=== PATIENT | male | born 1975 | race Two or more races ===

== ENCOUNTER 2020-08-16 06:38 | Inpatient (IN) | payer MEDICAID ==
[~2020-08-16] VITALS: Ht 157.5 cm; Wt 88.1 kg
[2020-08-16] MEDS ORDERED: NOREPINEPHRINE 8 MG/250ML KIT 250 ML IV ONE (07:29)
[2020-08-16] MEDS ORDERED: ETOMIDATE (2MG/ML) 20ML VIAL IV ONE ×2 (07:30→07:34)
[2020-08-16] MEDS ORDERED: SODIUM CHLORIDE 0.9% 2,600 ML IV ONE (07:30)
[2020-08-16] MEDS ORDERED: ACETAMINOPHEN 325 MG TAB PO PRN (07:30)
[2020-08-16] MEDS ORDERED: SUCCINYLCHOLINE CHLORIDE 20 MG/ML 10ML VIAL IV ONE ×2 (07:30→07:35)
[2020-08-16] MEDS ORDERED: MIDAZOLAM DRIP 50 mg/50mL 50 ML IV ONE (07:30)
[2020-08-16 07:53] LABS: Basophils # (auto) 0.2 10 ^3/uL (0-0.2); Basophils % (auto) 0.8 % (0.0-2.0); Eosinophils # (auto) 0 10 ^3/uL (0-0.8); Eosinophils % (auto) 0.2 % (0.0-7.0); Hematocrit 45.9 % (41.0-53.0); Hemoglobin 14.7 g/dL (13.5-17.5); Lymphocytes # (auto) 5.1 10 ^3/uL (0.4-5.4); Lymphocytes % (auto) 25.2 % (10.0-50.0); Mean Corpuscular Hemoglobin 30.1 pg (28.0-32.0); Mean Corpuscular Hgb Conc. 31.9 g/dL (32.0-36.0); Mean Corpuscular Volume 94.1 fL (80.0-100.0); Monocytes # (auto) 0.8 10 ^3/uL (0-1.3); Monocytes % (auto) 3.9 % (0.0-12.0); Neutrophils # (auto) 14.3 10 ^3/uL (1.6-8.6); Neutrophils % (auto) 69.9 % (37.0-80.0); Nucleated Red Blood Cells % 0.1 %; Platelet Count (auto) 278 10^3/uL (140-450); Red Blood Cells 4.88 10^6/uL (4.5-5.90); White Blood Cell 20.4 10^3/uL (4.4-10.8)
[2020-08-16] MEDS ORDERED: PROPOFOL 100 ML IV ONE (07:54)
[2020-08-16] MEDS: PROPOFOL 100 ML IV SCH (08:00)
[2020-08-16 08:02] LABS: INR 1.26 (0.9-1.15); Partial Thromboplastin Time 23.2 sec (23.0-31.2)
[2020-08-16] MEDS: MIDAZOLAM DRIP 50 mg/50mL 50 ML IV SCH ×6 (08:08→23:28)
[2020-08-16] MEDS: NOREPINEPHRINE 8 MG/250ML KIT 250 ML IV SCH (08:08)
[2020-08-16 08:13] LABS: Albumin 2.3 g/dL (3.4-5.0); BUN/Creatinine Ratio 15.5; Calcium 7.3 mg/dL (8.5-10.1)
[2020-08-16 08:15] LABS: Lactic Acid w/Reflex 7.7 mmol/L (0.4-2.0)
[2020-08-16] MEDS: fentaNYL Drip 2500mCg/250mlNS 250 ML IV SCH (08:50)
[2020-08-16] MEDS ORDERED: fentaNYL Drip 2500mCg/250mlNS 250 ML IV ONE (08:53)
[2020-08-16] MEDS ORDERED: SODIUM BICARBONATE 8.4 % INJ 50ML VIAL IV ONE (09:00)
[2020-08-16] MEDS ORDERED: IOHEXOL 350 MG/ML 100ML IJ ONE (09:29)
[2020-08-16] MEDS ORDERED: NITROGLYCERIN 0.4 MG SL TAB SL PRN (09:30)
[2020-08-16] MEDS ORDERED: MORPHINE SULF INJ 2 MG/ML SYRINGE 1ML IV PRN (09:30)
[2020-08-16] MEDS ORDERED: REMDESIVIR PER PHARMACY 0 ML IV SCH (09:30)
[2020-08-16] MEDS ORDERED: ONDANSETRON HCL 4 MG/2 ML VIAL IV PRN (09:30)
[2020-08-16] MEDS ORDERED: DEXTROSE (50%) 50ML SYRG IV PRN (09:30)
[2020-08-16 09:58] LABS: CRP High Sensitivity 1.45 mg/dL (< 0.3)
[2020-08-16] MEDS ORDERED: FAMOTIDINE 20 MG TAB PO SCH (10:00)
[2020-08-16] MEDS ORDERED: ENOXAPARIN SOD 100 MG/1 ML SYRINGE SC SCH (10:00)
[2020-08-16] MEDS: ASPirin-EC 81 mg tab PO SCH (11:02)
[2020-08-16] MEDS: ZINC SULFATE 220mg CAP or TAB PO SCH (11:02)
[2020-08-16] MEDS: CHOLECALCIFEROL (VITD3) 2,000 UNIT CAP/TAB PO SCH (11:03)
[2020-08-16] MEDS: ASCORBIC ACID 1,000 MG TAB PO SCH (11:03)
[2020-08-16] MEDS: DexAMETHasone SOD PHOS 10MG/1ML VIAL INJ IV SCH (11:04)
[2020-08-16 11:38] VITALS: BP 130/64
[2020-08-16] MEDS ORDERED: DexAMETHasone INJECTION 10 MG in SODIUM CHL 3% 500 ML IV SCH (12:00)
[2020-08-16] MEDS: ACCU-CHEK COMFORT CURVE STRIP VI SCH ×2 (12:22→18:00)
[2020-08-16] MEDS: InsuLIN REG 1unit/0.01ml Soln (100units/ml) SC SCH ×2 (12:23→19:30)
[2020-08-16] MEDS: PIPERACILLIN-TAZOB 3.375GM 100 ML IV SCH ×3 (12:33→23:07)
[2020-08-16 12:56] VITALS: BP 130/64
[2020-08-16 13:28] LABS: Lactic Acid w/Reflex 2.1 mmol/L (0.4-2.0)
[2020-08-16] MEDS: ACETAMINOPHEN 500 MG TAB PO PRN (13:58)
[2020-08-16 14:36] LABS: Urine Bacteria FEW /hpf (None Seen); Urine Blood Negative /uL (Negative); Urine Mucus FEW (None Seen); Urine WBC 1 /hpf (0 - 3)
[2020-08-16] MEDS ORDERED: ALTEPLASE (RECOMBINANT) 100 MG in STERILE WATER 100 ML IV ONE (15:00)
[2020-08-16 15:06] VITALS: BP 129/85
[2020-08-16 15:21] VITALS: BP 127/73
[2020-08-16] MEDS: SODIUM CHLORIDE 0.9% 1,000 ML IV SCH (16:13)
[2020-08-16] MEDS ORDERED: ROCURONIUM 10MG/ML 10ML VIAL IV ONE (16:15)
[2020-08-16] MEDS ORDERED: ALTEPLASE (RECOMBINANT) 100 MG ONE (16:29)
[2020-08-16 18:31] LABS: Basophils # (auto) 0.2 10 ^3/uL (0-0.2); Basophils % (auto) 1.3 % (0.0-2.0); Eosinophils # (auto) 0 10 ^3/uL (0-0.8); Hematocrit 42.1 % (41.0-53.0); Hemoglobin 14.3 g/dL (13.5-17.5); Lymphocytes % (auto) 6.1 % (10.0-50.0); Mean Corpuscular Hemoglobin 31.4 pg (28.0-32.0); Mean Corpuscular Volume 92.6 fL (80.0-100.0); Monocytes # (auto) 0.9 10 ^3/uL (0-1.3); Monocytes % (auto) 5.5 % (0.0-12.0); Neutrophils # (auto) 14.2 10 ^3/uL (1.6-8.6); Neutrophils % (auto) 87.1 % (37.0-80.0); Nucleated Red Blood Cells % 0.2 %; Platelet Count (auto) 222 10^3/uL (140-450); Red Blood Cells 4.55 10^6/uL (4.5-5.90); Red Cell Distribution Width 13.1 % (11.8-14.3); White Blood Cell 16.3 10^3/uL (4.4-10.8)
[2020-08-16 18:50] VITALS: BP 100/71
[2020-08-16] MEDS: SODIUM CHLOR 0.9% PF (SALINE LOCK) 10ML VIAL/SYR IV SCH (20:28)
[2020-08-16] MEDS ORDERED: REMDESIVIR 200 MG in NS 210ml LOADING DOSE ADULT IV ONE (20:30)
[2020-08-16 22:01] LABS: Basophils # (auto) 0 10 ^3/uL (0-0.2); Basophils % (auto) 0.3 % (0.0-2.0); Eosinophils # (auto) 0 10 ^3/uL (0-0.8); Hematocrit 41.2 % (41.0-53.0); Hemoglobin 13.7 g/dL (13.5-17.5); Lymphocytes # (auto) 1.5 10 ^3/uL (0.4-5.4); Lymphocytes % (auto) 10.9 % (10.0-50.0); Mean Corpuscular Hemoglobin 30.5 pg (28.0-32.0); Mean Corpuscular Hgb Conc. 33.2 g/dL (32.0-36.0); Mean Corpuscular Volume 91.9 fL (80.0-100.0); Monocytes # (auto) 1.1 10 ^3/uL (0-1.3); Monocytes % (auto) 7.8 % (0.0-12.0); Neutrophils # (auto) 11.1 10 ^3/uL (1.6-8.6); Platelet Count (auto) 199 10^3/uL (140-450); Red Blood Cells 4.48 10^6/uL (4.5-5.90); Red Cell Distribution Width 13.3 % (11.8-14.3); White Blood Cell 13.6 10^3/uL (4.4-10.8)
[2020-08-16 22:50] VITALS: BP_SYST 100; BP_SYST 98; BP_DIAS 70; BP_DIAS 71
[2020-08-17] MEDS: ACCU-CHEK COMFORT CURVE STRIP VI SCH ×4 (00:01→18:53)
[2020-08-17] MEDS: SODIUM CHLORIDE 0.9% 1,000 ML IV SCH ×3 (00:01→21:15)
[2020-08-17 02:35] VITALS: BP 105/73
[2020-08-17] MEDS: MIDAZOLAM DRIP 50 mg/50mL 50 ML IV SCH ×6 (04:10→21:00)
[2020-08-17] MEDS: InsuLIN REG 1unit/0.01ml Soln (100units/ml) SC SCH ×4 (05:01→18:53)
[2020-08-17] MEDS: PIPERACILLIN-TAZOB 3.375GM 100 ML IV SCH ×3 (05:01→18:23)
[2020-08-17] MEDS: NOREPINEPHRINE 8 MG/250ML KIT 250 ML IV SCH (05:04)
[2020-08-17 05:45] LABS: Basophils # (auto) 0.1 10 ^3/uL (0-0.2); Basophils % (auto) 0.6 % (0.0-2.0); Eosinophils # (auto) 0 10 ^3/uL (0-0.8); Hemoglobin 13.4 g/dL (13.5-17.5); Lymphocytes # (auto) 1.6 10 ^3/uL (0.4-5.4); Lymphocytes % (auto) 12.7 % (10.0-50.0); Mean Corpuscular Hemoglobin 30.9 pg (28.0-32.0); Mean Corpuscular Hgb Conc. 33.4 g/dL (32.0-36.0); Mean Corpuscular Volume 92.4 fL (80.0-100.0); Monocytes # (auto) 1.2 10 ^3/uL (0-1.3); Monocytes % (auto) 9.5 % (0.0-12.0); Neutrophils # (auto) 9.8 10 ^3/uL (1.6-8.6); Neutrophils % (auto) 77.2 % (37.0-80.0); Nucleated Red Blood Cells % 0.1 %; Platelet Count (auto) 177 10^3/uL (140-450); Red Blood Cells 4.33 10^6/uL (4.5-5.90); Red Cell Distribution Width 13.4 % (11.8-14.3); White Blood Cell 12.7 10^3/uL (4.4-10.8)
[2020-08-17 06:03] LABS: INR 1.43 (0.9-1.15); Partial Thromboplastin Time 27.9 sec (23.0-31.2)
[2020-08-17 06:11] LABS: Calcium 7.9 mg/dL (8.5-10.1); Potassium 4.3 mmol/L (3.5-5.1)
[2020-08-17 06:14] VITALS: BP 103/60
[2020-08-17 06:17] LABS: Albumin 2.4 g/dL (3.4-5.0); BUN/Creatinine Ratio 26.3; Bilirubin, Total 0.4 mg/dL (0.2-1.0); Total Protein 6.5 g/dL (6.4-8.2)
[2020-08-17] MEDS ORDERED: IVERMECTIN 3 MG TAB PO ONE (07:00)
[2020-08-17] MEDS: PROPOFOL 100 ML IV SCH (08:29)
[2020-08-17] MEDS ORDERED: cefTRIAXone 1GM/50ML D5W 50 ML IV SCH (09:00)
[2020-08-17 09:51] VITALS: BP 113/62
[2020-08-17] MEDS ORDERED: ENOXAPARIN SOD 100 MG/1 ML SYRINGE SC SCH (10:00)
[2020-08-17] MEDS: fentaNYL Drip 2500mCg/250mlNS 250 ML IV SCH (10:02)
[2020-08-17] MEDS: DexAMETHasone SOD PHOS 10MG/1ML VIAL INJ IV SCH (10:28)
[2020-08-17] MEDS: PANTOPRAZOLE 40 MG/10 ML VIAL INJ IV SCH (10:28)
[2020-08-17] MEDS: ASPirin-EC 81 mg tab PO SCH (10:29)
[2020-08-17] MEDS: ASCORBIC ACID 1,000 MG TAB PO SCH (10:29)
[2020-08-17] MEDS: ZINC SULFATE 220mg CAP or TAB PO SCH (10:29)
[2020-08-17] MEDS: SODIUM CHLOR 0.9% PF (SALINE LOCK) 10ML VIAL/SYR IV SCH ×2 (10:29→21:52)
[2020-08-17] MEDS: CHOLECALCIFEROL (VITD3) 2,000 UNIT CAP/TAB PO SCH (10:29)
[2020-08-17] MEDS ORDERED: HEPARIN SODIUM (PORCINE) 5000 UNITS/ML 1ML VIAL IV ONE ×2 (11:00→23:30)
[2020-08-17] MEDS ORDERED: LINEZOLID 600MG/300ML 300 ML IV ONE (11:00)
[2020-08-17 11:51] LABS: Basophils # (auto) 0 10 ^3/uL (0-0.2); Basophils % (auto) 0.1 % (0.0-2.0); Eosinophils # (auto) 0.1 10 ^3/uL (0-0.8); Eosinophils % (auto) 0.7 % (0.0-7.0); Hemoglobin 12.2 g/dL (13.5-17.5); Lymphocytes # (auto) 1.3 10 ^3/uL (0.4-5.4); Lymphocytes % (auto) 10.8 % (10.0-50.0); Mean Corpuscular Hemoglobin 32.5 pg (28.0-32.0); Mean Corpuscular Volume 92.9 fL (80.0-100.0); Monocytes % (auto) 8.5 % (0.0-12.0); Neutrophils # (auto) 9.3 10 ^3/uL (1.6-8.6); Neutrophils % (auto) 79.9 % (37.0-80.0); Platelet Count (auto) 185 10^3/uL (140-450); Red Blood Cells 3.76 10^6/uL (4.5-5.90); Red Cell Distribution Width 13.5 % (11.8-14.3); White Blood Cell 11.7 10^3/uL (4.4-10.8)
[2020-08-17 12:22] LABS: INR 1.29 (0.9-1.15)
[2020-08-17 12:25] LABS: Partial Thromboplastin Time < 20.0 sec (23.0-31.2)
[2020-08-17 13:34] VITALS: BP 100/67
[2020-08-17] MEDS: HEPARIN DRIP/D5W 100UNITS/ML 250 ML IV SCH ×2 (14:18→23:25)
[2020-08-17] MEDS ORDERED: REMDESIVIR 100mg 100 MG in SODIUM CHL 0.9% 230 ML IV SCH (15:00)
[2020-08-17 18:55] VITALS: BP 109/58
[2020-08-17] MEDS: LINEZOLID 600MG/300ML 300 ML IV SCH (21:51)
[2020-08-17 22:20] LABS: INR 1.24 (0.9-1.15)
[2020-08-17 22:21] LABS: Partial Thromboplastin Time < 20.0 sec (23.0-31.2)
[2020-08-17 22:33] VITALS: BP 118/53
[2020-08-17] MEDS ORDERED: HEPARIN SODIUM (PORCINE) 5000 UNITS/ML 1ML VIAL ONE (23:18)
[2020-08-18] MEDS: PIPERACILLIN-TAZOB 3.375GM 100 ML IV SCH ×5 (00:16→23:07)
[2020-08-18] MEDS: InsuLIN REG 1unit/0.01ml Soln (100units/ml) SC SCH ×5 (00:17→23:46)
[2020-08-18] MEDS: ACCU-CHEK COMFORT CURVE STRIP VI SCH ×5 (00:17→23:46)
[2020-08-18 01:40] VITALS: BP 123/52
[2020-08-18] MEDS: MIDAZOLAM DRIP 50 mg/50mL 50 ML IV SCH ×8 (02:00→23:07)
[2020-08-18] MEDS: PROPOFOL 100 ML IV SCH (02:00)
[2020-08-18 06:00] VITALS: BP 123/51
[2020-08-18 06:19] LABS: Basophils # (auto) 0.2 10 ^3/uL (0-0.2); Basophils % (auto) 1.7 % (0.0-2.0); Eosinophils # (auto) 0 10 ^3/uL (0-0.8); Hematocrit 33.4 % (41.0-53.0); Hemoglobin 11.8 g/dL (13.5-17.5); Lymphocytes # (auto) 0.8 10 ^3/uL (0.4-5.4); Mean Corpuscular Hemoglobin 32.3 pg (28.0-32.0); Mean Corpuscular Hgb Conc. 35.3 g/dL (32.0-36.0); Mean Corpuscular Volume 91.5 fL (80.0-100.0); Monocytes # (auto) 0.9 10 ^3/uL (0-1.3); Monocytes % (auto) 8.7 % (0.0-12.0); Neutrophils # (auto) 8.6 10 ^3/uL (1.6-8.6); Neutrophils % (auto) 81.6 % (37.0-80.0); Platelet Count (auto) 167 10^3/uL (140-450); Red Blood Cells 3.65 10^6/uL (4.5-5.90); Red Cell Distribution Width 13.3 % (11.8-14.3); White Blood Cell 10.5 10^3/uL (4.4-10.8)
[2020-08-18 06:28] LABS: Albumin 1.9 g/dL (3.4-5.0); BUN/Creatinine Ratio 14.5; Calcium 7.7 mg/dL (8.5-10.1)
[2020-08-18 06:31] LABS: Bilirubin, Total 0.6 mg/dL (0.2-1.0); Total Protein 5.7 g/dL (6.4-8.2)
[2020-08-18] MEDS: NOREPINEPHRINE 8 MG/250ML KIT 250 ML IV SCH (07:36)
[2020-08-18 08:43] LABS: INR 1.22 (0.9-1.15)
[2020-08-18 08:45] LABS: Partial Thromboplastin Time < 20.0 sec (23.0-31.2)
[2020-08-18] MEDS ORDERED: HEPARIN SODIUM (PORCINE) 5000 UNITS/ML 1ML VIAL ONE (08:52)
[2020-08-18] MEDS ORDERED: HEPARIN SODIUM (PORCINE) 5000 UNITS/ML 1ML VIAL IV ONE ×2 (09:15→17:45)
[2020-08-18] MEDS: SODIUM CHLORIDE 0.9% 1,000 ML IV SCH ×2 (10:02→17:24)
[2020-08-18] MEDS: DexAMETHasone SOD PHOS 10MG/1ML VIAL INJ IV SCH (10:03)
[2020-08-18] MEDS: LINEZOLID 600MG/300ML 300 ML IV SCH ×2 (10:03→22:28)
[2020-08-18] MEDS: SODIUM CHLOR 0.9% PF (SALINE LOCK) 10ML VIAL/SYR IV SCH ×2 (10:03→20:57)
[2020-08-18] MEDS: PANTOPRAZOLE 40 MG/10 ML VIAL INJ IV SCH (10:03)
[2020-08-18] MEDS: fentaNYL Drip 2500mCg/250mlNS 250 ML IV SCH (10:03)
[2020-08-18] MEDS: ASPirin-EC 81 mg tab PO SCH (10:04)
[2020-08-18] MEDS: CHOLECALCIFEROL (VITD3) 2,000 UNIT CAP/TAB PO SCH (10:04)
[2020-08-18] MEDS: ZINC SULFATE 220mg CAP or TAB PO SCH (10:04)
[2020-08-18] MEDS: ASCORBIC ACID 1,000 MG TAB PO SCH (10:04)
[2020-08-18 10:05] VITALS: BP 120/50
[2020-08-18 14:20] VITALS: BP 115/58
[2020-08-18 17:29] LABS: INR 1.89 (0.9-1.15)
[2020-08-18 17:30] LABS: Partial Thromboplastin Time < 20.0 sec (23.0-31.2)
[2020-08-18 18:48] VITALS: BP 102/57
[2020-08-18] MEDS: ENOXAPARIN SOD 100 MG/1 ML SYRINGE SC SCH (20:30)
[2020-08-18 22:28] VITALS: BP 104/59
[2020-08-19] VITALS (47 sets, daily range): BP systolic 92–136; BP diastolic 37–62
[2020-08-19] MEDS ORDERED: HEPARIN DRIP/D5W 100UNITS/ML 250 ML IV ONE (01:53)
[2020-08-19 01:59] LABS: Partial Thromboplastin Time > 139.0 sec (23.0-31.2)
[2020-08-19] MEDS: SODIUM CHLORIDE 0.9% 1,000 ML IV SCH ×2 (02:36→13:15)
[2020-08-19] MEDS: MIDAZOLAM DRIP 50 mg/50mL 50 ML IV SCH ×7 (02:36→22:25)
[2020-08-19] MEDS: PIPERACILLIN-TAZOB 3.375GM 100 ML IV SCH ×3 (05:05→17:56)
[2020-08-19] MEDS: InsuLIN REG 1unit/0.01ml Soln (100units/ml) SC SCH ×4 (05:31→23:48)
[2020-08-19] MEDS: ACCU-CHEK COMFORT CURVE STRIP VI SCH ×4 (05:32→23:45)
[2020-08-19 06:35] LABS: Calcium 7.5 mg/dL (8.5-10.1); Potassium 4.2 mmol/L (3.5-5.1)
[2020-08-19 06:41] LABS: Albumin 1.7 g/dL (3.4-5.0); BUN/Creatinine Ratio 22.8; Bilirubin, Total 0.3 mg/dL (0.2-1.0); Total Protein 5.3 g/dL (6.4-8.2)
[2020-08-19 07:36] LABS: INR 1.18 (0.9-1.15)
[2020-08-19] MEDS: NOREPINEPHRINE 8 MG/250ML KIT 250 ML IV SCH (07:36)
[2020-08-19 07:40] LABS: Partial Thromboplastin Time 126.7 sec (23.0-31.2)
[2020-08-19] MEDS: HEPARIN DRIP/D5W 100UNITS/ML 250 ML IV SCH (07:43)
[2020-08-19 08:47] LABS: Basophils # (auto) 0 10 ^3/uL (0-0.2); Basophils % (auto) 0.1 % (0.0-2.0); Eosinophils # (auto) 0 10 ^3/uL (0-0.8); Hematocrit 28.5 % (41.0-53.0); Hemoglobin 9.5 g/dL (13.5-17.5); Lymphocytes # (auto) 1.1 10 ^3/uL (0.4-5.4); Lymphocytes % (auto) 9.4 % (10.0-50.0); Mean Corpuscular Hemoglobin 30.9 pg (28.0-32.0); Mean Corpuscular Hgb Conc. 33.5 g/dL (32.0-36.0); Mean Corpuscular Volume 92.2 fL (80.0-100.0); Monocytes # (auto) 0.9 10 ^3/uL (0-1.3); Neutrophils # (auto) 9.2 10 ^3/uL (1.6-8.6); Neutrophils % (auto) 82.5 % (37.0-80.0); Nucleated Red Blood Cells % 0.1 %; Platelet Count (auto) 223 10^3/uL (140-450); Red Blood Cells 3.09 10^6/uL (4.5-5.90); White Blood Cell 11.2 10^3/uL (4.4-10.8)
[2020-08-19] MEDS: PROPOFOL 100 ML IV SCH ×2 (09:03→22:00)
[2020-08-19] MEDS: fentaNYL Drip 2500mCg/250mlNS 250 ML IV SCH ×2 (09:04→18:28)
[2020-08-19] MEDS: PANTOPRAZOLE 40 MG/10 ML VIAL INJ IV SCH (10:43)
[2020-08-19] MEDS: SODIUM CHLOR 0.9% PF (SALINE LOCK) 10ML VIAL/SYR IV SCH ×2 (10:43→23:44)
[2020-08-19] MEDS: LINEZOLID 600MG/300ML 300 ML IV SCH ×3 (10:43→23:45)
[2020-08-19] MEDS: DexAMETHasone SOD PHOS 10MG/1ML VIAL INJ IV SCH (10:43)
[2020-08-19] MEDS: ENOXAPARIN SOD 100 MG/1 ML SYRINGE SC SCH ×2 (10:44→23:45)
[2020-08-19] MEDS: CHOLECALCIFEROL (VITD3) 2,000 UNIT CAP/TAB PO SCH (10:44)
[2020-08-19] MEDS: ASCORBIC ACID 1,000 MG TAB PO SCH (10:44)
[2020-08-19] MEDS: ZINC SULFATE 220mg CAP or TAB PO SCH (10:44)
[2020-08-19] MEDS: ASPirin-EC 81 mg tab PO SCH (10:44)
[2020-08-19] MEDS ORDERED: REMDESIVIR PER PHARMACY 0 ML IV SCH (14:00)
[2020-08-19] MEDS ORDERED: REMDESIVIR 200 MG in NS 210ml LOADING DOSE ADULT IV ONE (15:30)
[2020-08-20] VITALS (108 sets, daily range): BP systolic 106–143; BP diastolic 50–78
[2020-08-20] MEDS: PIPERACILLIN-TAZOB 3.375GM 100 ML IV SCH ×4 (00:37→17:52)
[2020-08-20] MEDS: MIDAZOLAM DRIP 50 mg/50mL 50 ML IV SCH ×8 (03:45→21:19)
[2020-08-20] MEDS: InsuLIN REG 1unit/0.01ml Soln (100units/ml) SC SCH ×4 (06:00→17:52)
[2020-08-20] MEDS: ACCU-CHEK COMFORT CURVE STRIP VI SCH ×3 (07:24→17:51)
[2020-08-20] MEDS: PROPOFOL 100 ML IV SCH ×4 (07:33→21:01)
[2020-08-20] MEDS: NOREPINEPHRINE 8 MG/250ML KIT 250 ML IV SCH (07:36)
[2020-08-20 07:59] LABS: Basophils # (auto) 0.1 10 ^3/uL (0-0.2); Eosinophils # (auto) 0 10 ^3/uL (0-0.8); Hemoglobin 7.9 g/dL (13.5-17.5); Mean Corpuscular Volume 91.2 fL (80.0-100.0); Monocytes # (auto) 0.8 10 ^3/uL (0-1.3); Nucleated Red Blood Cells % 0.1 %; White Blood Cell 8.3 10^3/uL (4.4-10.8)
[2020-08-20 08:00] LABS: Basophils % (auto) 0.9 % (0.0-2.0); Lymphocytes # (auto) 1.2 10 ^3/uL (0.4-5.4); Lymphocytes % (auto) 14.7 % (10.0-50.0); Mean Corpuscular Hemoglobin 31.2 pg (28.0-32.0); Mean Corpuscular Hgb Conc. 34.2 g/dL (32.0-36.0); Monocytes % (auto) 9.8 % (0.0-12.0); Neutrophils # (auto) 6.2 10 ^3/uL (1.6-8.6); Neutrophils % (auto) 74.6 % (37.0-80.0); Platelet Count (auto) 238 10^3/uL (140-450); Red Blood Cells 2.52 10^6/uL (4.5-5.90); Red Cell Distribution Width 13.1 % (11.8-14.3)
[2020-08-20 08:15] LABS: Albumin 1.7 g/dL (3.4-5.0); Calcium 7.6 mg/dL (8.5-10.1); Magnesium 2.1 mg/dL (1.6-2.6); Potassium 4.1 mmol/L (3.5-5.1)
[2020-08-20 08:23] LABS: Bilirubin, Total 0.3 mg/dL (0.2-1.0); CRP High Sensitivity 5.36 mg/dL (< 0.3); Total Protein 5.3 g/dL (6.4-8.2)
[2020-08-20] MEDS: PANTOPRAZOLE 40 MG/10 ML VIAL INJ IV SCH ×2 (09:29→21:19)
[2020-08-20] MEDS: SODIUM CHLOR 0.9% PF (SALINE LOCK) 10ML VIAL/SYR IV SCH ×2 (09:29→21:19)
[2020-08-20] MEDS: DexAMETHasone SOD PHOS 10MG/1ML VIAL INJ IV SCH (09:29)
[2020-08-20] MEDS: ENOXAPARIN SOD 100 MG/1 ML SYRINGE SC SCH ×2 (09:30→21:20)
[2020-08-20] MEDS: ASPirin-EC 81 mg tab PO SCH (09:30)
[2020-08-20] MEDS: ASCORBIC ACID 1,000 MG TAB PO SCH (09:30)
[2020-08-20] MEDS: ZINC SULFATE 220mg CAP or TAB PO SCH (09:30)
[2020-08-20] MEDS: CHOLECALCIFEROL (VITD3) 2,000 UNIT CAP/TAB PO SCH (09:30)
[2020-08-20 15:02] LABS: Urine Bacteria NONE SEEN /hpf (None Seen); Urine Blood 2+ /uL (Negative); Urine Specific Gravity 1.016 (1.001-1.035); Urine WBC 6 /hpf (0 - 3)
[2020-08-20] MEDS: REMDESIVIR 100mg 100 MG in SODIUM CHL 0.9% 230 ML IV SCH (15:32)
[2020-08-20] MEDS: fentaNYL Drip 2500mCg/250mlNS 250 ML IV SCH (16:00)
[2020-08-20] MEDS: LINEZOLID 600MG/300ML 300 ML IV SCH (21:20)
[2020-08-21] VITALS (96 sets, daily range): BP systolic 99–186; BP diastolic 54–88
[2020-08-21] MEDS: ACCU-CHEK COMFORT CURVE STRIP VI SCH ×4 (00:02→18:00)
[2020-08-21] MEDS: PIPERACILLIN-TAZOB 3.375GM 100 ML IV SCH ×4 (00:02→18:00)
[2020-08-21] MEDS: InsuLIN REG 1unit/0.01ml Soln (100units/ml) SC SCH ×4 (00:11→18:00)
[2020-08-21] MEDS: MIDAZOLAM DRIP 50 mg/50mL 50 ML IV SCH ×7 (02:52→20:59)
[2020-08-21] MEDS: PROPOFOL 100 ML IV SCH ×2 (03:31→09:30)
[2020-08-21 05:42] LABS: Hematocrit 26.4 % (41.0-53.0); Hemoglobin 9.1 g/dL (13.5-17.5); Mean Corpuscular Hemoglobin 31.7 pg (28.0-32.0); Mean Corpuscular Hgb Conc. 34.5 g/dL (32.0-36.0); Mean Corpuscular Volume 91.8 fL (80.0-100.0); Platelet Count (auto) 237 10^3/uL (140-450); Red Blood Cells 2.87 10^6/uL (4.5-5.90); Red Cell Distribution Width 13.4 % (11.8-14.3); White Blood Cell 7.8 10^3/uL (4.4-10.8)
[2020-08-21 06:02] LABS: Albumin 1.9 g/dL (3.4-5.0); Calcium 7.8 mg/dL (8.5-10.1); Potassium 4.2 mmol/L (3.5-5.1)
[2020-08-21 06:06] LABS: BUN/Creatinine Ratio 26.8; Bilirubin, Total 0.4 mg/dL (0.2-1.0); Total Protein 5.7 g/dL (6.4-8.2)
[2020-08-21 06:14] LABS: Band Neutrophils % (manual) 0; Basophils % (manual) 0 (0.0-2.0); Blast Cells 0; Eosinophils % (manual) 0 (0-7); Promyelocytes % 0; Reactive Lymphocytes 0
[2020-08-21] MEDS: NOREPINEPHRINE 8 MG/250ML KIT 250 ML IV SCH (07:36)
[2020-08-21 07:47] LABS: Lymphocytes % (manual) 18 (10.0-50.0); Metamyelocytes % 1; Monocytes % (manual) 2 (0-12); Myelocytes % 1
[2020-08-21] MEDS: DexAMETHasone SOD PHOS 10MG/1ML VIAL INJ IV SCH (09:53)
[2020-08-21] MEDS: PANTOPRAZOLE 40 MG/10 ML VIAL INJ IV SCH (09:53)
[2020-08-21] MEDS: ZINC SULFATE 220mg CAP or TAB PO SCH (09:54)
[2020-08-21] MEDS: CHOLECALCIFEROL (VITD3) 2,000 UNIT CAP/TAB PO SCH (09:54)
[2020-08-21] MEDS: ASCORBIC ACID 1,000 MG TAB PO SCH (09:54)
[2020-08-21] MEDS: ASPirin-EC 81 mg tab PO SCH (09:54)
[2020-08-21] MEDS: SODIUM CHLOR 0.9% PF (SALINE LOCK) 10ML VIAL/SYR IV SCH (09:54)
[2020-08-21] MEDS: ENOXAPARIN SOD 100 MG/1 ML SYRINGE SC SCH ×2 (09:55→22:00)
[2020-08-21] MEDS ORDERED: hydrALAZINE HCL 20 MG/ML VL IV PRN (12:30)
[2020-08-21] MEDS: fentaNYL Drip 2500mCg/250mlNS 250 ML IV SCH (12:30)
[2020-08-21] MEDS ORDERED: hydrALAZINE HCL 20 MG/ML VL ONE (12:31)
[2020-08-21] MEDS: ACETAMINOPHEN 500 MG TAB PO PRN (14:32)
[2020-08-21] MEDS: REMDESIVIR 100mg 100 MG in SODIUM CHL 0.9% 230 ML IV SCH (15:10)
[2020-08-22] VITALS (104 sets, daily range): BP systolic 102–183; BP diastolic 51–87
[2020-08-22] MEDS: SODIUM CHLOR 0.9% PF (SALINE LOCK) 10ML VIAL/SYR IV SCH ×3 (01:07→23:06)
[2020-08-22] MEDS: PANTOPRAZOLE 40 MG/10 ML VIAL INJ IV SCH ×3 (01:07→23:05)
[2020-08-22] MEDS: PIPERACILLIN-TAZOB 3.375GM 100 ML IV SCH ×5 (01:08→23:06)
[2020-08-22] MEDS: PROPOFOL 100 ML IV SCH ×3 (03:27→18:55)
[2020-08-22] MEDS: MIDAZOLAM DRIP 50 mg/50mL 50 ML IV SCH ×6 (03:28→17:05)
[2020-08-22] MEDS: fentaNYL Drip 2500mCg/250mlNS 250 ML IV SCH (03:29)
[2020-08-22 05:30] LABS: Hematocrit 25.1 % (41.0-53.0); Hemoglobin 8.7 g/dL (13.5-17.5)
[2020-08-22 05:48] LABS: Calcium 7.8 mg/dL (8.5-10.1)
[2020-08-22 05:49] LABS: Mean Corpuscular Hemoglobin 32.2 pg (28.0-32.0); Mean Corpuscular Hgb Conc. 34.7 g/dL (32.0-36.0); Mean Corpuscular Volume 92.8 fL (80.0-100.0); Platelet Count (auto) 311 10^3/uL (140-450); Red Cell Distribution Width 13.4 % (11.8-14.3); White Blood Cell 9.8 10^3/uL (4.4-10.8)
[2020-08-22 05:51] LABS: BUN/Creatinine Ratio 23.7; Bilirubin, Total 0.5 mg/dL (0.2-1.0); Total Protein 5.9 g/dL (6.4-8.2)
[2020-08-22] MEDS: InsuLIN REG 1unit/0.01ml Soln (100units/ml) SC SCH ×4 (06:00→18:26)
[2020-08-22] MEDS: ACCU-CHEK COMFORT CURVE STRIP VI SCH ×4 (06:00→18:25)
[2020-08-22 06:03] LABS: Basophils % (manual) 0 (0.0-2.0); Blast Cells 0; Eosinophils % (manual) 0 (0-7); Myelocytes % 0; Promyelocytes % 0; Reactive Lymphocytes 0
[2020-08-22] MEDS: NOREPINEPHRINE 8 MG/250ML KIT 250 ML IV SCH (07:36)
[2020-08-22 08:50] LABS: Band Neutrophils % (manual) 2; Lymphocytes % (manual) 20 (10.0-50.0); Metamyelocytes % 2; Monocytes % (manual) 10 (0-12)
[2020-08-22] MEDS: CHOLECALCIFEROL (VITD3) 2,000 UNIT CAP/TAB PO SCH (10:00)
[2020-08-22] MEDS: ENOXAPARIN SOD 100 MG/1 ML SYRINGE SC SCH ×2 (10:00→23:06)
[2020-08-22] MEDS: ASPirin-EC 81 mg tab PO SCH (10:00)
[2020-08-22] MEDS: DexAMETHasone SOD PHOS 10MG/1ML VIAL INJ IV SCH (10:00)
[2020-08-22] MEDS: ASCORBIC ACID 1,000 MG TAB PO SCH (10:00)
[2020-08-22] MEDS: ZINC SULFATE 220mg CAP or TAB PO SCH (10:00)
[2020-08-22] MEDS ORDERED: OMNIPAQUE ORAL SOLN 500ml 12mg/ml PO ONE ×2 (10:16→13:58)
[2020-08-22] MEDS: hydrALAZINE HCL 20 MG/ML VL IV PRN (11:00)
[2020-08-22] MEDS: REMDESIVIR 100mg 100 MG in SODIUM CHL 0.9% 230 ML IV SCH (15:30)
[2020-08-22] MEDS ORDERED: IOHEXOL 300 MG/ML 100ML BOTTLE IJ ONE (18:15)
[2020-08-23] VITALS (45 sets, daily range): BP systolic 110–166; BP diastolic 56–99
[2020-08-23] MEDS: MIDAZOLAM DRIP 50 mg/50mL 50 ML IV SCH ×7 (00:16→22:00)
[2020-08-23] MEDS: fentaNYL Drip 2500mCg/250mlNS 250 ML IV SCH (00:18)
[2020-08-23] MEDS: PROPOFOL 100 ML IV SCH ×2 (00:19→08:15)
[2020-08-23] MEDS: PIPERACILLIN-TAZOB 3.375GM 100 ML IV SCH ×3 (05:11→18:00)
[2020-08-23] MEDS: InsuLIN REG 1unit/0.01ml Soln (100units/ml) SC SCH ×4 (06:00→18:00)
[2020-08-23] MEDS: ACCU-CHEK COMFORT CURVE STRIP VI SCH ×4 (06:00→18:00)
[2020-08-23] MEDS: NOREPINEPHRINE 8 MG/250ML KIT 250 ML IV SCH (07:36)
[2020-08-23 08:12] LABS: Hematocrit 26.4 % (41.0-53.0); Mean Corpuscular Hemoglobin 32.1 pg (28.0-32.0); Mean Corpuscular Hgb Conc. 34.2 g/dL (32.0-36.0); Mean Corpuscular Volume 93.9 fL (80.0-100.0); Platelet Count (auto) 311 10^3/uL (140-450); Red Blood Cells 2.82 10^6/uL (4.5-5.90); Red Cell Distribution Width 14.2 % (11.8-14.3); White Blood Cell 10.5 10^3/uL (4.4-10.8)
[2020-08-23 08:16] LABS: Basophils % (manual) 0 (0.0-2.0); Blast Cells 0; Eosinophils % (manual) 0 (0-7); Reactive Lymphocytes 0
[2020-08-23 08:31] LABS: Potassium 3.7 mmol/L (3.5-5.1)
[2020-08-23 08:39] LABS: BUN/Creatinine Ratio 28.1; Bilirubin, Total 0.6 mg/dL (0.2-1.0); Calcium 7.7 mg/dL (8.5-10.1); Total Protein 5.5 g/dL (6.4-8.2)
[2020-08-23 08:52] LABS: Band Neutrophils % (manual) 2; Lymphocytes % (manual) 20 (10.0-50.0); Metamyelocytes % 2; Monocytes % (manual) 7 (0-12); Myelocytes % 5; Promyelocytes % 1
[2020-08-23] MEDS: DexAMETHasone SOD PHOS 10MG/1ML VIAL INJ IV SCH (11:07)
[2020-08-23] MEDS: PANTOPRAZOLE 40 MG/10 ML VIAL INJ IV SCH ×2 (11:07→22:01)
[2020-08-23] MEDS: SODIUM CHLOR 0.9% PF (SALINE LOCK) 10ML VIAL/SYR IV SCH ×2 (11:07→22:02)
[2020-08-23] MEDS: ASPirin-EC 81 mg tab PO SCH (11:08)
[2020-08-23] MEDS: ZINC SULFATE 220mg CAP or TAB PO SCH (11:08)
[2020-08-23] MEDS: ASCORBIC ACID 1,000 MG TAB PO SCH (11:09)
[2020-08-23] MEDS: CHOLECALCIFEROL (VITD3) 2,000 UNIT CAP/TAB PO SCH (11:09)
[2020-08-23] MEDS: ENOXAPARIN SOD 100 MG/1 ML SYRINGE SC SCH ×2 (11:12→22:02)
[2020-08-23] MEDS: REMDESIVIR 100mg 100 MG in SODIUM CHL 0.9% 230 ML IV SCH (15:43)
[2020-08-23] MEDS ORDERED: LABETALOL HCL 5 MG/ML ML 20ML VIAL IV ONE (18:22)
[2020-08-23] MEDS ORDERED: LABETALOL HCL 5 MG/ML 4ML SYRINGE IV ONE (18:30)
[2020-08-23] MEDS: ACETAMINOPHEN 500 MG TAB PO PRN (22:03)
[2020-08-23] MEDS: hydrALAZINE HCL 20 MG/ML VL IV PRN (23:45)
[2020-08-24] VITALS (45 sets, daily range): BP systolic 130–162; BP diastolic 74–117
[2020-08-24] MEDS ORDERED: LORazepam 2MG/ML-1ML VIAL ONE (03:23)
[2020-08-24] MEDS ORDERED: LORazepam 2MG/ML-1ML VIAL IV ONE (03:30)
[2020-08-24 05:51] LABS: Hematocrit 35.6 % (41.0-53.0); Hemoglobin 11.6 g/dL (13.5-17.5); Mean Corpuscular Hemoglobin 30.9 pg (28.0-32.0); Mean Corpuscular Hgb Conc. 32.7 g/dL (32.0-36.0); Mean Corpuscular Volume 94.5 fL (80.0-100.0); Platelet Count (auto) 576 10^3/uL (140-450); Red Blood Cells 3.77 10^6/uL (4.5-5.90); Red Cell Distribution Width 14.2 % (11.8-14.3); White Blood Cell 25.5 10^3/uL (4.4-10.8)
[2020-08-24 05:55] LABS: Basophils % (manual) 0 (0.0-2.0); Blast Cells 0; Eosinophils % (manual) 0 (0-7); Promyelocytes % 0; Reactive Lymphocytes 0
[2020-08-24 06:08] LABS: Calcium 8.8 mg/dL (8.5-10.1); Potassium 3.7 mmol/L (3.5-5.1)
[2020-08-24] MEDS: InsuLIN REG 1unit/0.01ml Soln (100units/ml) SC SCH ×4 (06:26→18:05)
[2020-08-24] MEDS: PIPERACILLIN-TAZOB 3.375GM 100 ML IV SCH ×2 (06:39)
[2020-08-24] MEDS: ACCU-CHEK COMFORT CURVE STRIP VI SCH ×4 (06:39→18:05)
[2020-08-24] MEDS: ACETAMINOPHEN 500 MG TAB PO PRN (06:40)
[2020-08-24 07:04] LABS: Band Neutrophils % (manual) 1; Lymphocytes % (manual) 8 (10.0-50.0); Metamyelocytes % 2; Monocytes % (manual) 8 (0-12); Myelocytes % 2
[2020-08-24] MEDS: NOREPINEPHRINE 8 MG/250ML KIT 250 ML IV SCH (07:36)
[2020-08-24] MEDS: PROPOFOL 100 ML IV SCH (07:51)
[2020-08-24] MEDS: fentaNYL Drip 2500mCg/250mlNS 250 ML IV SCH (07:51)
[2020-08-24] MEDS: MIDAZOLAM DRIP 50 mg/50mL 50 ML IV SCH ×6 (07:52→23:19)
[2020-08-24] MEDS: PANTOPRAZOLE 40 MG/10 ML VIAL INJ IV SCH ×2 (08:34→21:18)
[2020-08-24] MEDS: DexAMETHasone SOD PHOS 10MG/1ML VIAL INJ IV SCH (08:34)
[2020-08-24] MEDS: SODIUM CHLOR 0.9% PF (SALINE LOCK) 10ML VIAL/SYR IV SCH ×2 (08:34→21:18)
[2020-08-24] MEDS: CHOLECALCIFEROL (VITD3) 2,000 UNIT CAP/TAB PO SCH (08:35)
[2020-08-24] MEDS: ASPirin-EC 81 mg tab PO SCH (08:35)
[2020-08-24] MEDS: ZINC SULFATE 220mg CAP or TAB PO SCH (08:35)
[2020-08-24] MEDS: ASCORBIC ACID 1,000 MG TAB PO SCH (08:35)
[2020-08-24] MEDS: ENOXAPARIN SOD 100 MG/1 ML SYRINGE SC SCH ×2 (08:35→21:19)
[2020-08-24] MEDS: CEFEPIME 2 GM in SODIUM CHL 0.9% 50 ML IV SCH ×2 (12:47→22:45)
[2020-08-24] MEDS: LINEZOLID 600MG/300ML 300 ML IV SCH (21:18)
[2020-08-25] VITALS (27 sets, daily range): BP systolic 107–151; BP diastolic 64–92
[2020-08-25] MEDS: InsuLIN REG 1unit/0.01ml Soln (100units/ml) SC SCH ×5 (00:25→23:08)
[2020-08-25] MEDS: ACCU-CHEK COMFORT CURVE STRIP VI SCH ×5 (00:25→23:12)
[2020-08-25 04:13] LABS: White Blood Cell 18.7 10^3/uL (4.4-10.8)
[2020-08-25 04:17] LABS: Hematocrit 34.2 % (41.0-53.0); Hemoglobin 11.3 g/dL (13.5-17.5); Mean Corpuscular Hemoglobin 31.3 pg (28.0-32.0); Mean Corpuscular Volume 94.9 fL (80.0-100.0); Platelet Count (auto) 489 10^3/uL (140-450); Red Blood Cells 3.61 10^6/uL (4.5-5.90); Red Cell Distribution Width 15.2 % (11.8-14.3)
[2020-08-25 04:23] LABS: Band Neutrophils % (manual) 0; Basophils % (manual) 0 (0.0-2.0); Blast Cells 0; Metamyelocytes % 0; Promyelocytes % 0; Reactive Lymphocytes 0
[2020-08-25 04:30] LABS: Calcium 8.3 mg/dL (8.5-10.1); Potassium 3.5 mmol/L (3.5-5.1)
[2020-08-25 04:32] LABS: BUN/Creatinine Ratio 22.9
[2020-08-25 05:17] LABS: Eosinophils % (manual) 1 (0-7); Lymphocytes % (manual) 3 (10.0-50.0); Monocytes % (manual) 7 (0-12); Myelocytes % 1
[2020-08-25] MEDS: CEFEPIME 2 GM in SODIUM CHL 0.9% 50 ML IV SCH ×3 (05:38→22:28)
[2020-08-25] MEDS: fentaNYL Drip 2500mCg/250mlNS 250 ML IV SCH (07:34)
[2020-08-25] MEDS: NOREPINEPHRINE 8 MG/250ML KIT 250 ML IV SCH (07:34)
[2020-08-25] MEDS: PROPOFOL 100 ML IV SCH (07:34)
[2020-08-25] MEDS: MIDAZOLAM DRIP 50 mg/50mL 50 ML IV SCH ×4 (07:34→11:52)
[2020-08-25] MEDS: PANTOPRAZOLE 40 MG/10 ML VIAL INJ IV SCH ×2 (08:30→22:01)
[2020-08-25] MEDS: ZINC SULFATE 220mg CAP or TAB PO SCH (08:30)
[2020-08-25] MEDS: DexAMETHasone SOD PHOS 10MG/1ML VIAL INJ IV SCH (08:30)
[2020-08-25] MEDS: SODIUM CHLOR 0.9% PF (SALINE LOCK) 10ML VIAL/SYR IV SCH ×2 (08:30→22:01)
[2020-08-25] MEDS: ASCORBIC ACID 1,000 MG TAB PO SCH (08:31)
[2020-08-25] MEDS: CHOLECALCIFEROL (VITD3) 2,000 UNIT CAP/TAB PO SCH (08:31)
[2020-08-25] MEDS: ASPirin-EC 81 mg tab PO SCH (08:31)
[2020-08-25] MEDS: ENOXAPARIN SOD 100 MG/1 ML SYRINGE SC SCH ×2 (08:31→22:01)
[2020-08-25] MEDS: LINEZOLID 600MG/300ML 300 ML IV SCH ×2 (09:46→22:01)
[2020-08-25] MEDS ORDERED: SODIUM CHLORIDE 0.9% 1,000 ML IV ONE (11:00)
[2020-08-25] MEDS: LORazepam 2MG/ML-1ML VIAL IV PRN (22:52)
[2020-08-26 05:00] VITALS: BP 100/62
[2020-08-26] MEDS: InsuLIN REG 1unit/0.01ml Soln (100units/ml) SC SCH ×3 (05:36→17:33)
[2020-08-26] MEDS: ACCU-CHEK COMFORT CURVE STRIP VI SCH ×3 (05:36→16:50)
[2020-08-26] MEDS: CEFEPIME 2 GM in SODIUM CHL 0.9% 50 ML IV SCH ×3 (05:39→22:25)
[2020-08-26 07:18] LABS: Hematocrit 34.5 % (41.0-53.0); Hemoglobin 11.3 g/dL (13.5-17.5); Mean Corpuscular Hemoglobin 31.9 pg (28.0-32.0); Mean Corpuscular Hgb Conc. 32.8 g/dL (32.0-36.0); Mean Corpuscular Volume 97.3 fL (80.0-100.0); Platelet Count (auto) 349 10^3/uL (140-450); Red Blood Cells 3.55 10^6/uL (4.5-5.90); Red Cell Distribution Width 16.7 % (11.8-14.3); White Blood Cell 12.7 10^3/uL (4.4-10.8)
[2020-08-26 07:40] LABS: Band Neutrophils % (manual) 0; Basophils % (manual) 0 (0.0-2.0); Blast Cells 0; Eosinophils % (manual) 0 (0-7); Metamyelocytes % 0; Promyelocytes % 0; Reactive Lymphocytes 0
[2020-08-26 07:41] LABS: BUN/Creatinine Ratio 30.3; Calcium 8.8 mg/dL (8.5-10.1); Potassium 3.8 mmol/L (3.5-5.1)
[2020-08-26 08:45] VITALS: BP 122/75
[2020-08-26 09:30] LABS: Lymphocytes % (manual) 12 (10.0-50.0); Monocytes % (manual) 9 (0-12); Myelocytes % 1
[2020-08-26] MEDS: PANTOPRAZOLE 40 MG/10 ML VIAL INJ IV SCH ×2 (11:20→22:25)
[2020-08-26] MEDS: ZINC SULFATE 220mg CAP or TAB PO SCH (11:20)
[2020-08-26] MEDS: CHOLECALCIFEROL (VITD3) 2,000 UNIT CAP/TAB PO SCH (11:21)
[2020-08-26] MEDS: ASCORBIC ACID 1,000 MG TAB PO SCH (11:21)
[2020-08-26] MEDS: DexAMETHasone SOD PHOS 10MG/1ML VIAL INJ IV SCH (11:21)
[2020-08-26] MEDS: ENOXAPARIN SOD 100 MG/1 ML SYRINGE SC SCH ×2 (11:21→22:27)
[2020-08-26] MEDS: ASPirin-EC 81 mg tab PO SCH (11:22)
[2020-08-26] MEDS: LINEZOLID 600MG/300ML 300 ML IV SCH ×2 (11:22→22:26)
[2020-08-26] MEDS: SODIUM CHLOR 0.9% PF (SALINE LOCK) 10ML VIAL/SYR IV SCH ×2 (11:22→22:26)
[2020-08-26 13:00] VITALS: BP 133/75
[2020-08-26 17:00] VITALS: BP 111/66
[2020-08-26 21:43] VITALS: BP 119/70
[2020-08-27] MEDS: ACCU-CHEK COMFORT CURVE STRIP VI SCH ×5 (00:23→23:45)
[2020-08-27] MEDS: InsuLIN REG 1unit/0.01ml Soln (100units/ml) SC SCH ×5 (00:24→23:44)
[2020-08-27 05:02] VITALS: BP 128/67
[2020-08-27] MEDS: CEFEPIME 2 GM in SODIUM CHL 0.9% 50 ML IV SCH ×3 (05:48→22:04)
[2020-08-27 09:00] VITALS: BP 126/73
[2020-08-27] MEDS: ZINC SULFATE 220mg CAP or TAB PO SCH (09:47)
[2020-08-27] MEDS: PANTOPRAZOLE 40 MG/10 ML VIAL INJ IV SCH ×2 (09:48→22:05)
[2020-08-27] MEDS: CHOLECALCIFEROL (VITD3) 2,000 UNIT CAP/TAB PO SCH (09:48)
[2020-08-27] MEDS: LINEZOLID 600MG/300ML 300 ML IV SCH ×2 (09:48→22:05)
[2020-08-27] MEDS: SODIUM CHLOR 0.9% PF (SALINE LOCK) 10ML VIAL/SYR IV SCH ×2 (09:48→22:05)
[2020-08-27] MEDS: ASPirin-EC 81 mg tab PO SCH (09:49)
[2020-08-27] MEDS: ENOXAPARIN SOD 100 MG/1 ML SYRINGE SC SCH ×2 (09:49→22:06)
[2020-08-27] MEDS: ASCORBIC ACID 1,000 MG TAB PO SCH (09:52)
[2020-08-27 13:00] VITALS: BP 121/76
[2020-08-27 17:00] VITALS: BP 118/68
[2020-08-27 22:00] VITALS: BP 111/71
[2020-08-28 05:00] VITALS: BP 120/68
[2020-08-28] MEDS: InsuLIN REG 1unit/0.01ml Soln (100units/ml) SC SCH ×4 (06:00→23:57)
[2020-08-28 06:10] LABS: Basophils # (auto) 0 10 ^3/uL (0-0.2); Basophils % (auto) 0.2 % (0.0-2.0); Eosinophils # (auto) 0.1 10 ^3/uL (0-0.8); Eosinophils % (auto) 1.3 % (0.0-7.0); Hematocrit 32.9 % (41.0-53.0); Lymphocytes # (auto) 1.6 10 ^3/uL (0.4-5.4); Lymphocytes % (auto) 18.4 % (10.0-50.0); Mean Corpuscular Hemoglobin 31.6 pg (28.0-32.0); Mean Corpuscular Hgb Conc. 33.4 g/dL (32.0-36.0); Mean Corpuscular Volume 94.6 fL (80.0-100.0); Monocytes # (auto) 0.6 10 ^3/uL (0-1.3); Neutrophils # (auto) 6.2 10 ^3/uL (1.6-8.6); Neutrophils % (auto) 73.1 % (37.0-80.0); Nucleated Red Blood Cells % 0.1 %; Platelet Count (auto) 263 10^3/uL (140-450); Red Blood Cells 3.47 10^6/uL (4.5-5.90); Red Cell Distribution Width 16.2 % (11.8-14.3); White Blood Cell 8.5 10^3/uL (4.4-10.8)
[2020-08-28] MEDS: CEFEPIME 2 GM in SODIUM CHL 0.9% 50 ML IV SCH ×3 (06:16→21:30)
[2020-08-28] MEDS: ACCU-CHEK COMFORT CURVE STRIP VI SCH ×4 (06:16→23:55)
[2020-08-28 06:34] LABS: Calcium 8.3 mg/dL (8.5-10.1); Potassium 3.4 mmol/L (3.5-5.1)
[2020-08-28 06:36] LABS: BUN/Creatinine Ratio 24.6
[2020-08-28 09:00] VITALS: BP 121/72
[2020-08-28] MEDS: PANTOPRAZOLE 40 MG/10 ML VIAL INJ IV SCH ×2 (09:04→21:30)
[2020-08-28] MEDS: SODIUM CHLOR 0.9% PF (SALINE LOCK) 10ML VIAL/SYR IV SCH ×2 (09:04→21:30)
[2020-08-28] MEDS: ASPirin-EC 81 mg tab PO SCH (09:05)
[2020-08-28] MEDS: LINEZOLID 600MG/300ML 300 ML IV SCH ×2 (09:05→21:31)
[2020-08-28] MEDS: ASCORBIC ACID 1,000 MG TAB PO SCH (09:05)
[2020-08-28] MEDS: ZINC SULFATE 220mg CAP or TAB PO SCH (09:05)
[2020-08-28] MEDS: CHOLECALCIFEROL (VITD3) 2,000 UNIT CAP/TAB PO SCH (09:06)
[2020-08-28] MEDS: ENOXAPARIN SOD 100 MG/1 ML SYRINGE SC SCH ×2 (09:08→21:31)
[2020-08-28 13:00] VITALS: BP 131/73
[2020-08-28] MEDS ORDERED: POTASSIUM CHL 20MEQ/100ML 100 ML IV ONE (13:45)
[2020-08-28] MEDS ORDERED: ERGOCALCIFEROL 50,000 UNIT(1.25MG) CAP PO SCH (13:45)
[2020-08-28 17:00] VITALS: BP 132/80
[2020-08-28 22:00] VITALS: BP 122/69
[2020-08-28] MEDS: LORazepam 2MG/ML-1ML VIAL IV PRN (23:50)
[2020-08-29 05:08] VITALS: BP 116/75
[2020-08-29 05:48] LABS: Basophils # (auto) 0 10 ^3/uL (0-0.2); Basophils % (auto) 0.3 % (0.0-2.0); Eosinophils # (auto) 0.1 10 ^3/uL (0-0.8); Eosinophils % (auto) 1.4 % (0.0-7.0); Hemoglobin 10.6 g/dL (13.5-17.5); Lymphocytes # (auto) 1.6 10 ^3/uL (0.4-5.4); Lymphocytes % (auto) 15.8 % (10.0-50.0); Mean Corpuscular Hemoglobin 32.1 pg (28.0-32.0); Mean Corpuscular Hgb Conc. 33.2 g/dL (32.0-36.0); Mean Corpuscular Volume 96.7 fL (80.0-100.0); Monocytes # (auto) 0.8 10 ^3/uL (0-1.3); Monocytes % (auto) 7.6 % (0.0-12.0); Neutrophils # (auto) 7.4 10 ^3/uL (1.6-8.6); Neutrophils % (auto) 74.9 % (37.0-80.0); Nucleated Red Blood Cells % 0.2 %; Platelet Count (auto) 223 10^3/uL (140-450); Red Cell Distribution Width 16.6 % (11.8-14.3); White Blood Cell 9.9 10^3/uL (4.4-10.8)
[2020-08-29] MEDS: CEFEPIME 2 GM in SODIUM CHL 0.9% 50 ML IV SCH ×3 (06:00→22:00)
[2020-08-29] MEDS: ACCU-CHEK COMFORT CURVE STRIP VI SCH ×3 (06:00→17:35)
[2020-08-29] MEDS: InsuLIN REG 1unit/0.01ml Soln (100units/ml) SC SCH ×3 (06:00→17:36)
[2020-08-29 06:06] LABS: Potassium 3.2 mmol/L (3.5-5.1)
[2020-08-29 06:14] LABS: Albumin 2.6 g/dL (3.4-5.0); BUN/Creatinine Ratio 22.2; Bilirubin, Total 1.2 mg/dL (0.2-1.0); Calcium 8.3 mg/dL (8.5-10.1); Total Protein 6.7 g/dL (6.4-8.2)
[2020-08-29] MEDS ORDERED: POTASSIUM CHL 20 Meq TABLET PO ONE (08:15)
[2020-08-29 09:05] VITALS: BP 131/75
[2020-08-29] MEDS: SODIUM CHLOR 0.9% PF (SALINE LOCK) 10ML VIAL/SYR IV SCH ×2 (10:09→22:00)
[2020-08-29] MEDS: PANTOPRAZOLE 40 MG/10 ML VIAL INJ IV SCH ×2 (10:09→22:00)
[2020-08-29] MEDS: LINEZOLID 600MG/300ML 300 ML IV SCH ×2 (10:09→23:05)
[2020-08-29] MEDS: ASPirin-EC 81 mg tab PO SCH (10:10)
[2020-08-29] MEDS: ZINC SULFATE 220mg CAP or TAB PO SCH (10:10)
[2020-08-29] MEDS: ASCORBIC ACID 1,000 MG TAB PO SCH (10:10)
[2020-08-29] MEDS: ENOXAPARIN SOD 100 MG/1 ML SYRINGE SC SCH ×2 (10:11→22:00)
[2020-08-29] MEDS: CHOLECALCIFEROL (VITD3) 2,000 UNIT CAP/TAB PO SCH (10:11)
[2020-08-29 13:18] VITALS: BP 123/79
[2020-08-29 16:38] VITALS: BP 125/73
[2020-08-29 22:00] VITALS: BP 103/66
[2020-08-30 05:00] VITALS: BP 108/71
[2020-08-30] MEDS: InsuLIN REG 1unit/0.01ml Soln (100units/ml) SC SCH ×4 (06:00→17:11)
[2020-08-30] MEDS: CEFEPIME 2 GM in SODIUM CHL 0.9% 50 ML IV SCH (06:13)
[2020-08-30] MEDS: ACCU-CHEK COMFORT CURVE STRIP VI SCH ×4 (06:14→17:11)
[2020-08-30 09:00] VITALS: BP 118/70
[2020-08-30] MEDS: SODIUM CHLOR 0.9% PF (SALINE LOCK) 10ML VIAL/SYR IV SCH (10:00)
[2020-08-30] MEDS: ASPirin-EC 81 mg tab PO SCH (10:35)
[2020-08-30] MEDS: ZINC SULFATE 220mg CAP or TAB PO SCH (10:35)
[2020-08-30] MEDS: LINEZOLID 600MG/300ML 300 ML IV SCH (10:35)
[2020-08-30] MEDS: PANTOPRAZOLE 40 MG/10 ML VIAL INJ IV SCH (10:35)
[2020-08-30] MEDS: CHOLECALCIFEROL (VITD3) 2,000 UNIT CAP/TAB PO SCH (10:36)
[2020-08-30] MEDS: ENOXAPARIN SOD 100 MG/1 ML SYRINGE SC SCH (10:36)
[2020-08-30] MEDS: ASCORBIC ACID 1,000 MG TAB PO SCH (10:36)
[2020-08-30 13:00] VITALS: BP 124/67
[2020-08-30 16:52] VITALS: BP 116/71
[2020-08-30 17:15] VITALS: BP 118/70
[2020-08-31] MEDS ORDERED: levoFLOXacin 500MG 100 ML IV SCH (10:00)
== END 2020-08-30 20:18 | disposition home or self-care (01) | DRG 720 ==
LOC: EDBD 06:38 → ER 06:38 → OVERFLOW 06:39 → DOU IN ICU 08-17 05:51 → TELE-WESTW 08-25 13:50
PROVIDERS: ADMIT Nurse Practitioner Acute Care; ATTEND Internal Medicine
PROC: 5A1955Z Respiratory Ventilation, Greater than 96 Consecutive Hours (ICD-10-PCS; principal; 2020-08-16)
PROC: 0BH17EZ Insertion of Endotracheal Airway into Trachea, Via Natural or Artificial Opening (ICD-10-PCS; 2020-08-16)
PROC: XW033E5 Introduction of Remdesivir Anti-infective into Peripheral Vein, Percutaneous Approach, New Technology Group 5 (ICD-10-PCS; 2020-08-16)
PROC: 02HV33Z Insertion of Infusion Device into Superior Vena Cava, Percutaneous Approach (ICD-10-PCS; 2020-08-16)
PROC: XW13325 Transfusion of Convalescent Plasma (Nonautologous) into Peripheral Vein, Percutaneous Approach, New Technology Group 5 (ICD-10-PCS; 2020-08-16)
PROC: 06HY33Z Insertion of Infusion Device into Lower Vein, Percutaneous Approach (ICD-10-PCS; 2020-08-20)
DX: A41.9 Sepsis, unspecified organism (principal); U07.1 COVID-19; J96.01 Acute respiratory failure with hypoxia; N17.0 Acute kidney failure with tubular necrosis; I26.99 Other pulmonary embolism without acute cor pulmonale; I21.4 Non-ST elevation (NSTEMI) myocardial infarction; J12.82 Pneumonia due to coronavirus disease 2019; G93.40 Encephalopathy, unspecified; R65.21 Severe sepsis with septic shock; I82.621 Acute embolism and thrombosis of deep veins of right upper extremity; T82.868A Thrombosis due to vascular prosthetic devices, implants and grafts, initial encounter; D68.59 Other primary thrombophilia; D89.839 Cytokine release syndrome, grade unspecified; E11.9 Type 2 diabetes mellitus without complications; E55.9 Vitamin D deficiency, unspecified; E86.1 Hypovolemia; E66.9 Obesity, unspecified; D64.9 Anemia, unspecified; Z79.01 Long term (current) use of anticoagulants; Z86.718 Personal history of other venous thrombosis and embolism; Z68.39 Body mass index [BMI] 39.0-39.9, adult
CPT/HCPCS: 36415; 36569; 36600; 70450; 71045; 71250; 71275; 74177; 80048; 80053; 81001; 82306; 82728; 82805; 82962; 83036; 83605; 83615; 83735; 84443; 84484; 85007; 85025; 85027; 85379; 85610; 85730; 86141; 86850; 86900; 86901; 87040; 87070; 87077; 87081; 87186; 87205; 87426; 87804; 92610; 93005; 93306; 93970; 93971; 94002; 94003; 97116; 97163; 97530; 99291; C9113; G0378; J0330; J1100; J1815; J2250; J2405; J2543; J2704; J3480; J7060